=== PATIENT | male | born 1995 | race Caucasian/White ===

== ENCOUNTER 2022-08-24 10:29 | Outpatient (CLI) | payer OTHER, MEDICAID, SELFPAY | END 2022-08-24 10:30 | disposition home or self-care (01) | LOC: AMB 09-15 17:00 | PROVIDERS: PCP Family Medicine; Visit Provider Family Medicine | DX: S99.912A Unspecified injury of left ankle, initial encounter (principal); V49.40XA Driver injured in collision with unspecified motor vehicles in traffic accident, initial encounter; Y92.410 Unspecified street and highway as the place of occurrence of the external cause | CPT/HCPCS: A0425; A0427 ==

== ENCOUNTER 2022-08-24 10:53 | Emergency (ER) | payer OTHER, SELFPAY ==
[2022-08-24] VITALS (32 sets, daily range): BP systolic 126–157; BP diastolic 65–95; PULSE 75–112; RESP 16–20; TEMP 36.6; O2SAT 97–100; BMI 28.1
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
[2022-08-24] MEDS: ONDANSETRON 2 MG/ML inj 4 MG IVP (11:10)
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
[2022-08-24] MEDS: HYDROmorphone 0.5 mg/0.5 ml inj IVP (11:11)
[2022-08-24] MEDS: 0.9 % SODIUM CHLORIDE 1000 ml 1,000 ML IV (11:25)
[2022-08-24 11:57] LABS: Appearance Urine Clear (Clear); Bilirubin Urine Negative (Negative); Blood Urine Negative (Negative); Color Urine Yellow (Yellow); Glucose Urine Negative (Negative); Ketones Urine Trace (Negative); Leukocyte Esterase Urine Negative (Negative); Nitrite Urine Negative (Negative); Protein Urine 2+ (Negative); Specific Gravity Urine 1.015 (1.000-1.030)
[2022-08-24 12:05] LABS: Basophils Percent Auto 0.3 % (0.0-3.0); Eosinophils Percent Auto 2.6 % (0.0-7.0); Hematocrit 44.1 % (37.0-53.0); Hemoglobin* 15.2 gm/dL (13.5-17.5); Immature Granulocytes Pct Auto 0.2 %; Lymphocytes Percent Auto 9.4 % (20-44); Mean Corpuscular HGB Conc 35 gm/dL (32-36); Mean Corpuscular Hemoglobin 32 pg (26-34); Mean Corpuscular Volume 94 fL (80-100); Monocytes Percent Auto 6.9 % (0.0-11.0); Neutrophils Percent Auto 80.6 % (42.0-72.0); Platelet Count* 245 K/uL (140-440); RDW Coefficient of Variation % 12.5 % (11.5-15.5); Red Blood Count 4.71 m/uL (4.30-5.90)
[2022-08-24 12:06] LABS: Mucus Urine Moderate; RBC Urine 0-2 (0-2); Squamous Epithelial Cell Urine Moderate (None-Few); WBC Urine 0-2 (0-5)
[2022-08-24 12:07] LABS: Coarse Granular Casts Urine Moderate
[2022-08-24 12:09] LABS: Slide Review Reflex No
[2022-08-24 12:15] LABS: Albumin* 2.3 g/dL (3.3-5.0); Chloride* 105 mmol/L (96-114)
[2022-08-24 12:16] LABS: Potassium* 3.6 mmol/L (3.6-5.1); Sodium* 137 mmol/L (135-149)
[2022-08-24 12:18] LABS: Aspartate Amino Transferase* 233 U/L (12-35); Bilirubin Total* 0.9 mg/dL (0.1-1.5); Carbon Dioxide* 27 mmol/L (20-32); Creatinine* 0.8 mg/dL (0.5-1.5); Est. Creatinine Clearance* 139.93; Estimated Glomerular Filt Rate 125 ml/min
[2022-08-24 12:19] LABS: Alanine Aminotransferase* 236 U/L (4-50); Alkaline Phosphatase* 77 U/L (40-150); Blood Urea Nitrogen* 10 mg/dL (5-24); Calcium* 8.7 mg/dL (8.4-10.6); Glucose* 101 mg/dL (60-115); Total Protein* 6.7 g/dL (6.0-8.3)
--- NOTE | 2022-08-24 12:48 | CRLHL7_ITS ---
For Patients: As a result of the Century Cures Act, medical imaging exams and procedure reports are released immediately into your electronic medical record. You may view this report before your referring provider. If you have questions, please contact your health care provider. INDICATION: Ankle injury. TECHNIQUE: Multidetector imaging with axial, coronal and sagittal formats. COMPARISON: Plain films same date. IMPRESSION: Hairline nondisplaced fracture intra-articular through the medial malleolus. Lateral malleolus intact. No posterior malleolar fracture. Anatomic alignment of the mortise. No joint effusion appreciated. IMPRESSION: Hairline nondisplaced medial malleolar fracture. Please note that all CT scans at this facility use dose modulation, iterative reconstruction, and/or weight-based dosing when appropriate to reduce radiation dose to as low as reasonably achievable. Dictated by James Judd MD @ 08/24/2022 2:06:13 PM (Electronically Signed)
--- NOTE | 2022-08-24 12:48 | CRLHL7_ITS ---
For Patients: As a result of the Century Cures Act, medical imaging exams and procedure reports are released immediately into your electronic medical record. You may view this report before your referring provider. If you have questions, please contact your health care provider. Indication: PAIN WITH ROTATION TO THE RIGHT Technique: Noncontrast sagittal T1, T2, STIR and axial GRE sequences are provided. Comparison: CT 08/24/2022 Findings: Normal cervical spine alignment. Vertebral body heights are maintained. No fractures. No prevertebral or paraspinal edema. No aggressive osseous lesions. No abnormal intramedullary spinal cord signal. C1-2: No spinal canal stenosis C2-3: No significant spinal canal stenosis or neural foramen narrowing. C3-4: No significant spinal canal stenosis or neural foramen narrowing. C4-5: No significant spinal canal stenosis or neural foramen narrowing. C5-6: No significant spinal canal stenosis or neural foramen narrowing. C6-7: No significant spinal canal stenosis or neural foramen narrowing. C7-T1: No significant spinal canal stenosis or neural foramen narrowing. Impression: 1. No acute osseous or ligamentous injury. 2. Normal alignment. No significant spinal canal stenosis or neural foramen narrowing. 3. No abnormal spinal cord signal. Dictated by Pradip Ferrara MD @ 08/24/2022 4:01:01 PM (Electronically Signed)
[2022-08-24] MEDS: KETOROLAC 15 MG/ML inj IVP (14:41)
[2022-08-24 15:19] LABS: Ethanol* < 0.01 % (0.01-0.03)
[2022-08-24 15:26] LABS: Barbiturate Screen Urine Negative (Negative); Benzodiazepines Screen Urine Negative (Negative); Methadone Screen Urine Negative (Negative); Oxycodone Screen Urine Negative (Negative); Phencyclidine Screen Urine Negative (Negative); Tricyclic Antidepressant Urine Negative (Negative)
[2022-08-24 15:39] LABS: Amphetamine Screen Urine POSITIVE (Negative); Cannabinoid Screen Urine POSITIVE (Negative); Cocaine Screen Urine POSITIVE (Negative); Methamphetamines Screen Urine POSITIVE (Negative); Opiate Screen Urine POSITIVE (Negative)
--- NOTE | 2022-08-24 15:51 | ED.NURSE ---
called catracho bernal, he will look at ct scan to see if they suggest anything different for treatment.
[2022-08-24 16:47] LABS: Barbiturate Screen Urine Negative (Negative); Benzodiazepines Screen Urine Negative (Negative); Methadone Screen Urine Negative (Negative); Oxycodone Screen Urine Negative (Negative); Phencyclidine Screen Urine Negative (Negative); Tricyclic Antidepressant Urine Negative (Negative)
[2022-08-24 16:49] LABS: Amphetamine Screen Urine POSITIVE (Negative); Cannabinoid Screen Urine POSITIVE (Negative); Cocaine Screen Urine POSITIVE (Negative); Methamphetamines Screen Urine POSITIVE (Negative); Opiate Screen Urine POSITIVE (Negative)
--- NOTE | 2022-08-24 16:51 | ED.NURSE ---
Call from lab, same urine drug results from fresh sample of urine. Dr. Hanna updated.
== END 2022-08-24 18:05 | disposition home or self-care (01) ==
PROVIDERS: Emergency Provider Family Medicine; PCP Family Medicine
DX: S82.892A Other fracture of left lower leg, initial encounter for closed fracture (principal); S20.219A Contusion of unspecified front wall of thorax, initial encounter; V43.52XA Car driver injured in collision with other type car in traffic accident, initial encounter; R79.89 Other specified abnormal findings of blood chemistry
CPT/HCPCS: 36415; 70450; 71260; 72125; 72141; 73610; 73700; 74177; 80053; 80306; 81001; 82077; 84484; 85025; 93005; 96361; 96374; 96375; 99285; 99291; G0390; J1170; J1885; J2405; J7030; Q9967